=== PATIENT | female | born 1995 | race African-American/Black ===

== ENCOUNTER 2023-01-19 11:27 | Emergency (ER) | payer OTHER, SELFPAY ==
[~2023-01-19] VITALS: Ht 175.3 cm; Wt 109.1 kg
[2023-01-19 11:28] VITALS: TEMP 98.6
[2023-01-19] MEDS ORDERED: LYRI150C PO (11:34)
[2023-01-19] MEDS ORDERED: ZOLO100T PO (11:34)
[2023-01-19] MEDS ORDERED: ALBU6.7H6 INH (11:34)
[2023-01-19] MEDS ORDERED: diazePAM 5MG TABLET PO ONE (12:55)
[2023-01-19] MEDS ORDERED: LIDOCAINE 5% (LIDODERM) PATCH TD ONE (12:55)
[2023-01-19] MEDS ORDERED: KETOROLAC 30 MG/ML 1ML VIAL IM ONE (12:55)
[2023-01-19 12:58] LABS: APPEARANCE, URINE CLEAR (CLEAR); BACTERIA, URINE AUTO NEGATIVE (NEGATIVE); BILIRUBIN, URINE AUTO NEGATIVE (NEGATIVE); BLOOD, URINE BLOOD NEGATIVE (NEGATIVE); COLOR, URINE STRAW (YELLOW); GLUCOSE, URINE (UA) AUTO NEGATIVE (NEGATIVE); KETONE, URINE AUTO NEGATIVE (NEGATIVE); LEUKOCYTE ESTERASE, URINE AUTO NEGATIVE (NEGATIVE); MUCUS, URINE SMALL (NEGATIVE); NITRITE, URINE AUTO NEGATIVE (NEGATIVE); PROTEIN, URINE AUTO NEGATIVE (NEGATIVE); RBC, URINE AUTO 0 /HPF (0-3); SPECIFIC GRAVITY URINE AUTO 1.009 (1.002-1.035); SQUAMOUS EPITHELIAL CELL UR AU 0 /HPF (0-6); UROBILINOGEN, URINE AUTO 0.2 mg/dL (0.0-2.0); WBC, URINE AUTO 0 /HPF (0-3)
[2023-01-19] MEDS ORDERED: KETO10TAB PO (14:35)
[2023-01-19] MEDS ORDERED: METH-1164 PO (14:35)
[2023-01-19 14:52] VITALS: BP 117/74; O2SAT 98
== END 2023-01-19 14:54 | disposition home or self-care (01) ==
LOC: M ED 11:27
DX: M54.50 Low back pain, unspecified (principal); J45.909 Unspecified asthma, uncomplicated; Z79.51 Long term (current) use of inhaled steroids; Z79.899 Other long term (current) drug therapy
CPT/HCPCS: 81001; 84702; 96372; 99283; J1885

== ENCOUNTER → 2023-04-12 | Outpatient (CLI) | payer OTHER ==
[~2023-04-12] MED LIST: ALBU6.7H6 INH; KETO10TAB PO; LYRI150C PO; METH-1164 PO; ZOLO100T PO
== END ==
LOC: M WHC 07:50
PROVIDERS: ATTEND Obstetrics & Gynecology
DX: N83.291 Other ovarian cyst, right side (principal); N83.292 Other ovarian cyst, left side

== ENCOUNTER 2023-06-06 14:01 | Emergency (ER) | payer OTHER ==
[~2023-06-06] VITALS: Ht 175.3 cm; Wt 112.9 kg
[2023-06-06 19:10] VITALS: TEMP 97.7
[2023-06-06 21:34] LABS: BASO # 0.1 10^3/uL (0.0-0.2); BASO % 0.7 % (0.0-1.0); EOS # 0.1 10^3/uL (0.0-0.5); EOS % 1.2 % (0.0-3.0); HEMATOCRIT 42.6 % (36.0-47.0); LYMPH # 5.1 10^3/uL (1.5-5.0); LYMPH % 47.3 % (24.0-44.0); MEAN CORPUSCULAR HEMOGLOBIN 26.6 pg (27.0-33.0); MEAN CORPUSCULAR HGB CONC 32.9 g/dl (32.0-36.5); MONO # 0.6 10^3/uL (0.0-0.8); MONO % 5.6 % (2.0-8.0); NEUTROPHILS # 4.8 10^3/uL (1.5-8.5); NEUTROPHILS % 44.8 % (36.0-66.0); PLATELET COUNT, AUTOMATED 325 10^3/uL (150-450); RED BLOOD COUNT 5.26 10^6/uL (4.00-5.40); WHITE BLOOD COUNT 10.7 10^3/uL (4.0-10.0)
[2023-06-06 21:44] LABS: ERYTHROCYTE SEDIMENTATION RATE 27 mm/hr (0-20)
[2023-06-06 21:55] LABS: C REACTIVE PROTEIN QUANTITATIV < 0.40 MG/DL (<1.0)
[2023-06-06 21:57] LABS: BLOOD UREA NITROGEN 11 MG/DL (9-23); CALCIUM LEVEL 8.9 MG/DL (8.5-10.1); CARBON DIOXIDE LEVEL 20 MMOL/L (20-31); CHLORIDE LEVEL 104 MMOL/L (98-107); CREATININE FOR GFR 0.76 MG/DL (0.55-1.30); GLOMERULAR FILTRATION RATE > 60.0 (>60); GLUCOSE, FASTING 95 MG/DL (60-100); POTASSIUM SERUM 4.4 MMOL/L (3.5-5.1); SODIUM LEVEL 136 MMOL/L (136-145)
[2023-06-06 21:59] LABS: FREE THYROXINE INDEX 3.8 % (1.3-4.8); T UPTAKE 41.5 % (22.5-37.0); THYROID STIMULATING HORMONE 5.245 uIU/ML (0.55-4.78); THYROXINE (T4) 9.1 UG/DL (4.5-10.9)
[2023-06-06 22:49] VITALS: BP 124/66; O2SAT 98
== END 2023-06-06 22:53 | disposition home or self-care (01) ==
LOC: M ED 14:01
DX: E04.1 Nontoxic single thyroid nodule (principal); R94.6 Abnormal results of thyroid function studies; Z79.899 Other long term (current) drug therapy; Z79.51 Long term (current) use of inhaled steroids; D17.9 Benign lipomatous neoplasm, unspecified